=== PATIENT | male | born 1940 | race African-American/Black ===

== ENCOUNTER 2022-05-20 10:54 | Observation (INO) | payer MEDICARE ==
[2022-05-15 11:23] LABS: BASOPHILS % 0.2 % (0.0-1.0); EOSINOPHILS # (AUTO) 0.2 (0.0-0.4); EOSINOPHILS % 3.6 % (0.0-6.0); HEMATOCRIT 36.2 % (38.2-49.6); HEMOGLOBIN 10.5 g/dL (14.0-18.0); LYMPHOCYTES # (AUTO) 1.7 (1.0-3.2); MEAN CORPUSCULAR HEMOGLOBIN 22.3 pg (28-32); MONOCYTES # (AUTO) 0.5 (0.2-0.8); MONOCYTES % 9.3 % (4.4-11.3); NEUTROPHILS # (AUTO) 3.1 (2.1-6.9); NEUTROPHILS % 55.5 % (38.7-80.0); PLATELET COUNT 197 x10e3/uL (140-360); RED CELL DISTRIBUTION WIDTH 15.2 % (11.7-14.4)
[2022-05-15 11:50] LABS: ALANINE AMINOTRANSFERASE 7 IU/L (0-55); ALBUMIN/GLOBULIN RATIO 1.3 (0.8-2.0); ALKALINE PHOSPHATASE 57 IU/L (40-150); ANION GAP 13.7 mmol/L (8-16); BLOOD UREA NITROGEN 16 mg/dL (7-26); BUN/CREATININE RATIO 13 (6-25); CALCIUM 9.6 mg/dL (8.4-10.2); CARBON DIOXIDE 23 mmol/L (22-29); CHLORIDE 110 mmol/L (98-107); CREATININE, SERUM 1.23 mg/dL (0.72-1.25); GLUCOSE 100 mg/dL (74-118); POTASSIUM 4.7 mmol/L (3.5-5.1); SODIUM 142 mmol/L (136-145)
[~2022-05-20] VITALS: Ht 160 cm; Wt 59.0 kg
[~2022-05-20 10:54] MED LIST: AMLODIPINE BESY10 MG PO; FERROUS SULFAT324 MG PO; ISOSORBIDE MONO30 MG PO; METFORMIN HCL500 M1 PO; NEURONTIN300 MG PO; OMEPRAZOLE40 MG PO
[2022-05-20 11:11] VITALS: BP 149/56
[2022-05-20] MEDS ORDERED: SODIUM CHLORIDE 0.9% 1000ML 1,000 ML ONE ×4 (11:39→19:15)
[2022-05-20] MEDS ORDERED: HEPARIN SOD/SOD CHLORIDE 2,000 ML ONE (12:28)
[2022-05-20] MEDS ORDERED: HEPARIN SOD (PORCINE) 1000 UNIT/ML 30ML ONE (12:28)
[2022-05-20] MEDS ORDERED: IOPAMIDOL 300MG/ML 100 ML INFUS..BTL IV ONE ×2 (12:29→15:51)
[2022-05-20] MEDS ORDERED: LIDOCAINE 1% 10 ML MULTIDOSE VIAL IJ ONE (12:29)
[2022-05-20] MEDS ORDERED: DIPHENHYDRAMINE HCL 25 MG CAP ONE (12:45)
[2022-05-20] MEDS ORDERED: ALPRAZOLAM 0.5 MG TAB ONE (12:45)
[2022-05-20] MEDS ORDERED: TRAVATAN Z5 ML OP (13:00)
[2022-05-20] MEDS ORDERED: MIDAZOLAM HCL 2 MG/2 ML VIAL ONE (14:06)
[2022-05-20] MEDS ORDERED: FENTANYL CITRATE/PF 100MCG/2 ML INJ ONE (14:07)
[2022-05-20] MEDS ORDERED: VERAPAMIL HCL 2.5 MG/ML 2 ML VIAL ONE (14:49)
[2022-05-20] MEDS ORDERED: ASPIRIN 325 MG TAB ONE (16:48)
[2022-05-20] MEDS ORDERED: CLOPIDOGREL BISULFATE 75 MG TAB ONE (16:48)
[2022-05-20 18:23] VITALS: BP 149/56
[2022-05-20] MEDS ORDERED: SODIUM CHLORIDE 0.9% 1000ML 1,000 ML IV SCH (19:30)
[2022-05-20 20:00] VITALS: BP 142/59
[2022-05-20 21:35] VITALS: BP 142/59
[2022-05-21 01:02] VITALS: BP 152/62
[2022-05-21 06:13] VITALS: BP 167/56
[2022-05-21 08:14] VITALS: BP 167/56
[2022-05-21] MEDS ORDERED: ASPIRIN 81 MG ENTERIC COATED PO SCH (09:00)
[2022-05-21] MEDS ORDERED: CLOPIDOGREL BISULFATE 75 MG TAB PO SCH (09:00)
[2022-05-21 09:23] VITALS: BP 154/54
[2022-05-21] MEDS ORDERED: PLAVIX75 MG PO (11:13)
[2022-05-21] MEDS ORDERED: ASPIRIN81 MG PO (11:13)
[2022-05-21 12:00] VITALS: BP 145/53
== END 2022-05-21 12:25 | disposition home or self-care (01) ==
LOC: CATH LAB 10:54 → MED/SURG3 17:03 → INTOOBSV 17:03 → MED/SURG2 05-21 00:44
PROVIDERS: ADMIT Internal Medicine Interventional Cardiology; ATTEND Internal Medicine Interventional Cardiology
DX: E11.51 Type 2 diabetes mellitus with diabetic peripheral angiopathy without gangrene (principal); I70.212 Atherosclerosis of native arteries of extremities with intermittent claudication, left leg; I10 Essential (primary) hypertension; Z20.822 Contact with and (suspected) exposure to COVID-19; Z01.818 Encounter for other preprocedural examination
CPT/HCPCS: 37220; 37227; 37228; C1877; 0223U; 36247; 36415; 37221; 37252; 75625; 75822; 76937; 80053; 82948; 85025; 99152; 99153; C1724; C1725; C1753; C1760; C1769; C1874; C1887; C1894; C2623; G0378; J1644; J2250; J3010; J7030; Q9967

== ENCOUNTER 2022-06-24 09:00 | Observation (INO) | payer MEDICARE ==
[2022-06-20 10:28] LABS: BASOPHILS % 0.2 % (0.0-1.0); EOSINOPHILS # (AUTO) 0.2 (0.0-0.4); EOSINOPHILS % 4.3 % (0.0-6.0); HEMATOCRIT 36.9 % (38.2-49.6); HEMOGLOBIN 10.7 g/dL (14.0-18.0); LYMPHOCYTES # (AUTO) 1.9 (1.0-3.2); LYMPHOCYTES % 34.2 % (18.0-39.1); MEAN CORPUSCULAR HEMOGLOBIN 22.3 pg (28-32); MEAN CORPUSCULAR VOLUME 76.9 fL (81-99); MONOCYTES # (AUTO) 0.6 (0.2-0.8); MONOCYTES % 11.3 % (4.4-11.3); NEUTROPHILS # (AUTO) 2.7 (2.1-6.9); NEUTROPHILS % 49.6 % (38.7-80.0); PLATELET COUNT 197 x10e3/uL (140-360); RED CELL DISTRIBUTION WIDTH 15.2 % (11.7-14.4)
[2022-06-20 11:05] LABS: ALANINE AMINOTRANSFERASE 11 IU/L (0-55); ALBUMIN/GLOBULIN RATIO 1.1 (0.8-2.0); ALKALINE PHOSPHATASE 56 IU/L (40-150); ANION GAP 12.4 mmol/L (8-16); BLOOD UREA NITROGEN 19 mg/dL (7-26); BUN/CREATININE RATIO 16 (6-25); CALCIUM 9.4 mg/dL (8.4-10.2); CARBON DIOXIDE 26 mmol/L (22-29); CHLORIDE 105 mmol/L (98-107); CHOL/HDL RATIO 3.7 (3.9-4.7); CHOLESTEROL 176 MD/DL (0-199); CREATININE, SERUM 1.17 mg/dL (0.72-1.25); GLUCOSE 89 mg/dL (74-118); HDL CHOLESTEROL 48 MG/DL (40-60); LDL CHOLESTEROL 102 MG/DL (60-130); POTASSIUM 4.4 mmol/L (3.5-5.1); SODIUM 139 mmol/L (136-145); TRIGLYCERIDES 131 MG/DL (0-149)
[2022-06-24] VITALS (27 sets, daily range): BP systolic 112–160; BP diastolic 48–64
[~2022-06-24] VITALS: Ht 157.5 cm; Wt 61.7 kg
[~2022-06-24 09:00] MED LIST changes: +ASPIRIN81 MG PO; +PLAVIX75 MG PO; +TRAVATAN Z5 ML OP
[2022-06-24] MEDS ORDERED: ALPRAZOLAM 0.5 MG TAB ONE (11:15)
[2022-06-24] MEDS ORDERED: DIPHENHYDRAMINE HCL 25 MG CAP ONE (11:16)
[2022-06-24] MEDS ORDERED: SODIUM CHLORIDE 0.9% 1000ML 1,000 ML ONE ×3 (11:16→17:05)
[2022-06-24] MEDS ORDERED: HEPARIN SOD/SOD CHLORIDE 2,000 ML ONE ×2 (14:55→15:03)
[2022-06-24] MEDS ORDERED: HEPARIN SOD (PORCINE) 1000 UNIT/ML 30ML ONE (15:02)
[2022-06-24] MEDS ORDERED: MIDAZOLAM HCL 2 MG/2 ML VIAL ONE (15:02)
[2022-06-24] MEDS ORDERED: LIDOCAINE HCL 2% LOCAL INJ 5 ML SDV VIAL INJ ONE (15:03)
[2022-06-24] MEDS ORDERED: IOPAMIDOL 370 MG/ML 100 ML INFUS..BTL INJ ONE (15:03)
[2022-06-24] MEDS ORDERED: FENTANYL CITRATE/PF 100MCG/2 ML INJ ONE (15:03)
[2022-06-24] MEDS ORDERED: VERAPAMIL HCL 2.5 MG/ML 2 ML VIAL ONE (17:08)
[2022-06-24] MEDS ORDERED: CLOPIDOGREL BISULFATE 75 MG TAB ONE (17:56)
[2022-06-24] MEDS ORDERED: HYDRALAZINE HCL 20 MG/ML VIAL ONE (18:11)
[2022-06-24] MEDS ORDERED: IOPAMIDOL 300MG/ML 50ML INFUS..BTL IV ONE (18:17)
[2022-06-25] VITALS: BP 154/62
[2022-06-25] MEDS ORDERED: SODIUM CHLORIDE 0.9% 1000ML 1,000 ML IV ONE (00:15)
[2022-06-25] MEDS ORDERED: HYDRALAZINE HCL 20 MG/ML VIAL IV PRN (00:15)
[2022-06-25] MEDS ORDERED: HYDROMORPHONE 1MG/1ML INJ IV PRN (00:15)
[2022-06-25 04:00] VITALS: BP 165/65
[2022-06-25 08:02] VITALS: BP 160/69
[2022-06-25] MEDS ORDERED: ASPIRIN 81 MG ENTERIC COATED PO SCH (09:00)
[2022-06-25] MEDS ORDERED: CLOPIDOGREL BISULFATE 75 MG TAB PO SCH (09:00)
[2022-06-25 12:27] VITALS: BP 150/47
== END 2022-06-25 15:10 | disposition home or self-care (01) ==
LOC: CATH LAB 09:00 → CATH LAB V 18:35 → MED/SURG 22:20
PROVIDERS: ADMIT Internal Medicine Interventional Cardiology; ATTEND Internal Medicine Interventional Cardiology
DX: I70.211 Atherosclerosis of native arteries of extremities with intermittent claudication, right leg (principal); I70.92 Chronic total occlusion of artery of the extremities; Z79.82 Long term (current) use of aspirin; Z79.84 Long term (current) use of oral hypoglycemic drugs; Z01.812 Encounter for preprocedural laboratory examination; Z20.822 Contact with and (suspected) exposure to COVID-19
CPT/HCPCS: 0223U; 36415 ×3; 37225; 80053; 80061; 82948 ×2; 85025; C1724; C1725 ×2; C1766; C1769 ×4; C1887; C1894; C2623; G0378 ×2; J0360; J1170; J1644; J2001; J2250; J3010; J7030 ×2; Q9967 ×2